=== PATIENT | female | born 1995 | race American Indian/Alaskan Native ===

== ENCOUNTER 2017-12-07 12:37 | Emergency (ER) | payer MEDICAID ==
[2017-12-07 12:52] VITALS: BP 124/73
--- NOTE | 2017-12-07 17:50 | Emergency Department Report ---
ED Fall HPI - General Chief Complaint: Fall Stated Complaint: FELL DOWN AND Time Seen by Provider: 12/07/17 17:33 Source: patient Mode of arrival: Ambulatory - History of Present Illness Initial Comments: Patient is a 22-year-old black female who fell on stairs and slipped down 2 stairs while holding one of her children. She did not hit her head she's got some pain at the right buttock. Patient is approximately 3 months and was worried that she has injured the baby. Patient states she is not felt the baby move today. Patient is here for examination to ensure that everything was okay as far as her . Severity scale (0 -10): 5 Quality: burning Context: tripped/slipped - Related Data Previous Rx's Medication Instructions Recorded Last Taken Type Ferrous Sulfate [Feosol 325 MG tab] 325 mg PO BID #60 tablet 03/02/15 08/23/15 Rx Ibuprofen [Motrin 600 MG tab] 800 mg PO Q6H PRN #30 tablet 03/02/15 08/23/15 10: 00 Rx Lidocaine/Prilocaine [Emla Cream] 30 gm TP PRN PRN #1 cream..g. 03/04/15 Rx Ferrous Sulfate [Feosol 325 MG tab] 325 mg PO BID #60 tablet 03/24/16 Unknown Rx Ibuprofen [Motrin 800 MG tab] 800 mg PO Q6H PRN #30 tablet 03/24/16 Unknown Rx oxyCODONE /ACETAMINOPHEN [Percocet 1 - 2 tab PO Q4H PRN #30 tablet 03/24/16 Unknown Rx 5/325 mg] Allergies Allergy/AdvReac Type Severity Reaction Status Date / Time No Known Allergies Allergy Verified 11/28/14 12:16 ED Review of Systems ROS: Stated complaint: FELL DOWN AND Other details as noted in HPI Comment: All other systems reviewed and negative ED Past Medical Hx - Past Medical History Previous Medical History?: Yes Hx Hypertension: No Hx Congestive Heart Failure: No Hx Diabetes: No Hx Deep Vein Thrombosis: No Hx Renal Disease: No Hx Sickle Cell Disease: No Hx Seizures: No Hx Asthma: Yes (last attack as child) Hx COPD: No Hx HIV: No - Surgical History Past Surgical History?: Yes Additional Surgical History: x 1 - Social History Smoking Status: Current Every Day Smoker Substance Use Type: None - Medications Home Medications: Home Medications Medication Instructions Recorded Confirmed Last Taken Type Ferrous Sulfate [Feosol 325 MG tab] 325 mg PO BID #60 tablet 03/02/15 03/24/16 08/23/15 Rx Ibuprofen [Motrin 600 MG tab] 800 mg PO Q6H PRN #30 tablet 03/02/15 03/24/1609/07 10:00 Rx Lidocaine/Prilocaine [Emla Cream] 30 gm TP PRN PRN #1 cream..g. 03/04/1508/23/15 Rx Ferrous Sulfate [Feosol 325 MG tab] 325 mg PO BID #60 tablet 03/24/16 Unknown Rx Ibuprofen [Motrin 800 MG tab] 800 mg PO Q6H PRN #30 tablet 03/24/16 Unknown Rx oxyCODONE /ACETAMINOPHEN [Percocet 1 - 2 tab PO Q4H PRN #30 tablet 03/24/16 Unknown Rx 5/325 mg] ED Physical Exam - General Limitations: No Limitations General appearance: alert, in no apparent distress - Head Head exam: Present: atraumatic, normocephalic - Eye Eye exam: Present: normal appearance - ENT ENT exam: Present: mucous membranes moist - Neck Neck exam: Present: normal inspection - Respiratory Respiratory exam: Present: normal lung sounds bilaterally. Absent: respiratory distress, wheezes, rales, rhonchi, stridor - Cardiovascular Cardiovascular Exam: Present: regular rate, normal rhythm. Absent: systolic murmur, diastolic murmur, rubs, gallop - GI/Abdominal GI/Abdominal exam: Present: soft, normal bowel sounds - Extremities Exam Extremities exam: Present: normal inspection, other (patient has some tenderness to the right buttock there is no midline back tenderness present.) - Back Exam Back exam: Present: normal inspection - Neurological Exam Neurological exam: Present: alert, oriented X3 - Psychiatric Psychiatric exam: Present: normal affect, normal mood - Skin Skin exam: Present: warm, dry, intact, normal color. Absent: rash ED Course Vital Signs 12/07/17 12:46 Temperature 98.4 F Pulse Rate 99 H Respiratory 18 Rate Blood Pressure 124/73 O2 Sat by Pulse 100 Oximetry ED Medical Decision Making - Radiology Data Viable IUP with no acute process Critical care attestation.: If time is entered above; I have spent that time in minutes in the direct care of this critically ill patient, excluding procedure time. ED Disposition Clinical Impression: Contusion, buttock Qualifiers: Encounter type: initial encounter Qualified Code(s): S30.0XXA - Contusion of lower back and pelvis, initial encounter Disposition: TO HOME OR SELFCARE Is pt being admited?: No Does the pt Need Aspirin: No Condition: Stable Instructions: Musculoskeletal Pain (ED) Referrals: MELODY MCKEON MD [Primary Care Provider] - 3-5 Days
--- NOTE | 2017-12-07 17:53 | Ultrasound Report ---
FINAL REPORT EXAM: US OB > = 14 WEEKS FETUS HISTORY: decreased movement after fall TECHNIQUE: Obstetrical ultrasound transabdominal PRIORS: None. FINDINGS: Single live intrauterine gestation present. cardiac activity present heart rate 160 beats per. Placenta is anterior and does not appear low lying. No evidence for placental abruption biometric measurements were obtained Biparietal diameter 14 weeks 5 days Head circumference 14 weeks 5 days Abdominal circumference 14 weeks 5 days Femur length 14 weeks 4 days Based on today's exam estimated gestational age 14 weeks 5 days with estimated date of delivery June 02, 2018 IMPRESSION: Single live intrauterine gestation estimated at 14 weeks 5 days
== END 2017-12-07 18:11 | disposition home or self-care (01) ==
LOC: ED 12:37
DX: O9A.211 Injury, poisoning and certain other consequences of external causes complicating pregnancy, first trimester (principal); S30.0XXA Contusion of lower back and pelvis, initial encounter; O99.511 Diseases of the respiratory system complicating pregnancy, first trimester; J45.909 Unspecified asthma, uncomplicated; O99.331 Smoking (tobacco) complicating pregnancy, first trimester; Z3A.12 12 weeks gestation of pregnancy; W10.8XXA Fall (on) (from) other stairs and steps, initial encounter; Y93.89 Activity, other specified; Y92.89 Other specified places as the place of occurrence of the external cause; Y99.8 Other external cause status
CPT/HCPCS: 36415; 76805; 84702; 99284

== ENCOUNTER 2017-12-26 10:18 | Emergency (ER) | payer MEDICAID ==
[2017-12-26] MEDS ORDERED: NACL 0.9% 1000 ML 1,000 ML IV ONE ×2 (11:38→12:24)
[2017-12-26] MEDS ORDERED: REGLAN IV ONE (11:39)
[2017-12-26] MEDS ORDERED: MORPHINE IV ONE ×2 (11:39→13:22)
[2017-12-26 12:00] LABS: Basophils # (Auto) 0.1 K/mm3 (0.0-0.1); Basophils % (Auto) 0.4 % (0.0-1.8); Eosinophils # (Auto) 0.2 K/mm3 (0.0-0.4); Eosinophils % (Auto) 1.1 % (0.0-4.3); Hemoglobin 12.6 gm/dl (10.1-14.3); Lymphocytes # (Auto) 2.8 K/mm3 (1.2-5.4); Lymphocytes % (Auto) 15.4 % (13.4-35.0); Mean Corpuscular HGB Conc 34 % (30-34); Mean Corpuscular Hemoglobin 27 pg (28-32); Mean Corpuscular Volume 78 fl (79-97); Monocytes % (Auto) 5.5 % (0.0-7.3); Platelet Count 279 K/mm3 (140-440); Red Blood Count 4.75 M/mm3 (3.65-5.03); Red Cell Distribution Width 15.2 % (13.2-15.2)
[2017-12-26 12:10] LABS: INR 0.94 (0.87-1.13)
[2017-12-26 12:11] LABS: Partial Thromboplastin Time 27.7 Sec. (24.2-36.6)
[2017-12-26 12:18] LABS: Alanine Aminotransferase 6 units/L (7-56); Albumin 3.8 g/dL (3.9-5); BUN/Creatinine Ratio 14; Blood Urea Nitrogen 7 mg/dL (7-17); Calcium 8.9 mg/dL (8.4-10.2); Hemolysis Index 1
--- NOTE | 2017-12-26 12:30 | Emergency Department Report ---
ED Abdominal Pain HPI - General Chief Complaint: Abdominal Pain Stated Complaint: ABDOMINAL PAIN/WATER BROKE Time Seen by Provider: 12/26/17 11:35 Source: patient Mode of arrival: Wheelchair Limitations: No Limitations - History of Present Illness MD Complaint: abdominal pain (Lower abdominal cramps.) -: Sudden, This morning Location: suprapubic Radiation: back Severity: severe Severity scale (0 -10): 10 Quality: cramping, sharp Consistency: constant Improves With: nothing Worsens With: nothing Context: other (patient said that she fell down the steps a week ago.) Associated Symptoms: denies other symptoms - Related Data Previous Rx's Medication Instructions Recorded Last Taken Type Ferrous Sulfate [Feosol 325 MG tab] 325 mg PO BID #60 tablet 03/02/15 08/23/15 Rx Ibuprofen [Motrin 600 MG tab] 800 mg PO Q6H PRN #30 tablet 03/02/15 08/23/15 10: 00 Rx Lidocaine/Prilocaine [Emla Cream] 30 gm TP PRN PRN #1 cream..g. 03/04/15 Rx Ferrous Sulfate [Feosol 325 MG tab] 325 mg PO BID #60 tablet 03/24/16 Unknown Rx Ibuprofen [Motrin 800 MG tab] 800 mg PO Q6H PRN #30 tablet 03/24/16 Unknown Rx oxyCODONE /ACETAMINOPHEN [Percocet 1 - 2 tab PO Q4H PRN #30 tablet 03/24/16 Unknown Rx 5/325 mg] Cephalexin [Keflex] 500 mg PO Q8HR 7 Days #21 cap 12/26/17 Unknown Rx HYDROcodone/ACETAMINOPHEN [[place] 1 each PO BID 3 Days #6 tablet 12/26/17 Unknown Rx 5-325 Tablet] Ibuprofen [Motrin] 800 mg PO Q8HR PRN 7 Days #20 12/26/17 Unknown Rx tablet Allergies Allergy/AdvReac Type Severity Reaction Status Date / Time No Known Allergies Allergy Verified 12/26/17 10:22 ED Review of Systems ROS: Stated complaint: ABDOMINAL PAIN/WATER BROKE Other details as noted in HPI Comment: All other systems reviewed and negative Constitutional: denies: chills, fever Eyes: denies: vision change ENT: denies: ear pain Respiratory: no symptoms reported. denies: shortness of breath Cardiovascular: denies: chest pain, palpitations Endocrine: no symptoms reported Gastrointestinal: abdominal pain. denies: nausea, vomiting Musculoskeletal: back pain (lower back) Skin: denies: change in color Neurological: denies: headache, weakness, numbness Psychiatric: denies: depression, auditory hallucinations Hematological/Lymphatic: denies: easy bleeding, easy bruising ED Past Medical Hx - Past Medical History Hx Hypertension: No Hx Congestive Heart Failure: No Hx Diabetes: No Hx Deep Vein Thrombosis: No Hx Renal Disease: No Hx Sickle Cell Disease: No Hx Seizures: No Hx Asthma: Yes (last attack as child) Hx COPD: No Hx HIV: No - Surgical History Additional Surgical History: x 1 - Social History Smoking Status: Current Every Day Smoker Substance Use Type: Marijuana - Medications Home Medications: Home Medications Medication Instructions Recorded Confirmed Last Taken Type Ferrous Sulfate [Feosol 325 MG tab] 325 mg PO BID #60 tablet 03/02/15 03/24/16 08/23/15 Rx Ibuprofen [Motrin 600 MG tab] 800 mg PO Q6H PRN #30 tablet 03/02/15 03/24/1609/07 10:00 Rx Lidocaine/Prilocaine [Emla Cream] 30 gm TP PRN PRN #1 cream..g. 03/04/1508/23/15 Rx Ferrous Sulfate [Feosol 325 MG tab] 325 mg PO BID #60 tablet 03/24/16 Unknown Rx Ibuprofen [Motrin 800 MG tab] 800 mg PO Q6H PRN #30 tablet 03/24/16 Unknown Rx oxyCODONE /ACETAMINOPHEN [Percocet 1 - 2 tab PO Q4H PRN #30 tablet 03/24/16 Unknown Rx 5/325 mg] Cephalexin [Keflex] 500 mg PO Q8HR 7 Days #21 cap 12/26/17 Unknown Rx HYDROcodone/ACETAMINOPHEN [[place] 1 each PO BID 3 Days #6 tablet 12/26/17 Unknown Rx 5-325 Tablet] Ibuprofen [Motrin] 800 mg PO Q8HR PRN 7 Days #20 12/26/17 Unknown Rx tablet ED Physical Exam - General Limitations: No Limitations General appearance: alert, in distress - Head Head exam: Present: atraumatic, normocephalic, normal inspection - Eye Eye exam: Present: normal appearance, PERRL, EOMI Pupils: Present: normal accommodation - ENT ENT exam: Present: normal exam, mucous membranes moist - Neck Neck exam: Present: normal inspection, full ROM - Respiratory Respiratory exam: Present: normal lung sounds bilaterally. Absent: respiratory distress, wheezes - Cardiovascular Cardiovascular Exam: Present: regular rate, normal rhythm - GI/Abdominal GI/Abdominal exam: Present: soft, tenderness, guarding, other (suprapubic tenderness to palpation.) - External exam: Present: normal external exam, bleeding, other (there is a dentist a few tooth him out of the introitus. This reduces bed without any movements. Fetus is signed and on a tread of umbilical cord.). Absent: lacerations Bi-manual exam: Present: other ([place] was Ms. Harriet RN.) - Extremities Exam Extremities exam: Present: normal inspection, full ROM - Back Exam Back exam: Present: normal inspection, full ROM - Neurological Exam Neurological exam: Present: alert, oriented X3, CN II-XII intact - Psychiatric Psychiatric exam: Present: agitated, anxious - Skin Skin exam: Present: warm, dry, intact, normal color ED Course Vital Signs 12/26/17 12/26/17 12/26/17 10:23 10:52 11:27 Temperature 98.6 F Pulse Rate 91 H 82 Respiratory 18 12 20 Rate Blood Pressure 117/68 Blood Pressure 125/76 [Right] O2 Sat by Pulse 97 100 100 Oximetry - Reevaluation(s) Reevaluation #1: 12/26/17 12:31 I consulted the SOCIOLOGY PROFESSOR doctor studio operations manager Dr. Karen Kirk. She recommended giving the patient 400 mg of Cytotec immediately. She recommended evaluate the patient in the emergency room. 12/26/17 12:31 Reevaluation #2: 12/26/17 14:42 Dr Hattie Kirk the computer network support specialist studio operations manager came to the ED, evaluated the patient and delivered the placenta. She recommend discharging her with Keflex 500mg PO and Methergine 0.25mg PO every 4 hours x 4 doses. She wants patient to follow up in her outpatient clinic next week. ED Medical Decision Making - Lab Data Result diagrams: 12/26/17 13:28 12/26/17 11:44 - Medical Decision Making Incomplete spontaneous . Critical care attestation.: If time is entered above; I have spent that time in minutes in the direct care of this critically ill patient, excluding procedure time. ED Disposition Clinical Impression: Spontaneous Disposition: [id number] TO HOME OR SELFCARE Is pt being admited?: No Does the pt Need Aspirin: No Condition: Stable Instructions: Abdominal Pain (ED), Spontaneous Miscarriage (ED) Additional Instructions: Patient along with Dr. Hattie Kirk next week in her outpatient clinic. Return to the ED if your condition worsens. Prescriptions: Cephalexin [Keflex] 500 mg PO Q8HR 7 Days #21 cap HYDROcodone/ACETAMINOPHEN [[place] 5-325 Tablet] 1 each PO BID 3 Days #6 tablet Ibuprofen [Motrin] 800 mg PO Q8HR PRN 7 Days #20 tablet PRN Reason: Pain Referrals: PRIMARY CARE, [Primary Care Provider] - 3-5 Days HATTIE KIRK MD [Staff Physician] - 3-5 Days
--- NOTE | 2017-12-26 12:42 | Ultrasound Report ---
ULTRASOUND OB LIMITED History: Lower abdominal cramps, recent spontaneous Technique: Transabdominal ultrasound with Doppler interrogation. Findings: The uterus is anteverted. The uterus is enlarged measuring 15 x 10 x 10 cm. No uterine mass. The endometrium is markedly thickened measuring up to 4 cm consistent with retained products of conception. The ovaries are not visualized. No pelvic fluid collection. Impression: Retained products of conception are suspected as outlined above.
[2017-12-26] MEDS ORDERED: CYTOTEC PO ONE (13:00)
[2017-12-26] MEDS ORDERED: METHERGINE PO ONE (13:15)
--- NOTE | 2017-12-26 13:26 | History and Physical Report ---
History of Present Illness Date of examination: 12/26/17 Date of admission: 12/26/17 Chief complaint: abdominal pain and bleeding History of present illness: This is a 22 yo with LMP Jun or Jul. Patient was seen 2 weeks after a fall noted to be 14 week. Patient noted to have abdominal pain on a scale of 10 and came in today at 11am. Patient was noted to have a heavy bleeding and passed the fetus. I was contacted to evaluate patient for bleeding while in the ER Past History Past Medical History: no pertinent history Past Surgical History: section (breech ) Family/Genetic History: none Social history: single, smoking, other (+ marijuana) - Obstetrical History : 3 Medications and Allergies Allergies Allergy/AdvReac Type Severity Reaction Status Date / Time No Known Allergies Allergy Verified 12/26/17 10:22 Home Medications Medication Instructions Recorded Confirmed Last Taken Type Ferrous Sulfate [Feosol 325 MG tab] 325 mg PO BID #60 tablet 03/02/15 03/24/16 08/23/15 Rx Ibuprofen [Motrin 600 MG tab] 800 mg PO Q6H PRN #30 tablet 03/02/15 03/24/1609/07 10:00 Rx Lidocaine/Prilocaine [Emla Cream] 30 gm TP PRN PRN #1 cream..g. 03/04/1508/23/15 Rx Ferrous Sulfate [Feosol 325 MG tab] 325 mg PO BID #60 tablet 03/24/16 Unknown Rx Ibuprofen [Motrin 800 MG tab] 800 mg PO Q6H PRN #30 tablet 03/24/16 Unknown Rx oxyCODONE /ACETAMINOPHEN [Percocet 1 - 2 tab PO Q4H PRN #30 tablet 03/24/16 Unknown Rx 5/325 mg] Active Meds: Active Medications Sodium Chloride (Nacl 0.9% 1000 Ml) 1,000 mls @ 999 mls/hr IV BOLUS ONE Stop: 12/26/17 13:24 Review of Systems All systems: negative Genitourinary: vaginal bleeding, contractions - Vital Signs Vital signs: Vital Signs Temp Pulse Resp BP Pulse Ox 98.6 F 91 H 18 117/68 97 12/26/17 10:23 12/26/17 10:23 12/26/17 10:23 12/26/17 10:23 12/26/17 10:23 Temp Pulse Resp BP Pulse Ox 98.6 F 82 20 125/76 100 12/26/17 10:23 12/26/17 11:27 12/26/17 11:27 12/26/17 11:27 12/26/17 11:27 - Physical Exam Breasts: Positive: normal Cardiovascular: Regular rate, Normal S1 Lungs: Positive: Clear to auscultation, Normal air movement Abdomen: Positive: normal appearance, soft, normal bowel sounds. Negative: distention, tenderness, guarding Genitourinary (Female): Positive: normal external genitalia, normal perenium Vagina: Positive: normal moisture Cervix: Positive: other (open with placenta at os) Uterus: Positive: normal size Anus/Rectum: Positive: normal perianal skin Extremities: Positive: normal Deep Tendon Reflex Grade: Normal +2 Results Result Diagrams: 12/26/17 11:44 12/26/17 11:44 Abnormal lab results 12/26/17 12/26/17 Range/Units 11:44 11:44 WBC 18.4 H (4.5-11.0) K/mm3 MCV 78 L (79-97) fl MCH 27 L (28-32) pg [place] # 1.0 H (0.0-0.8) K/mm3 Seg Neutrophils % 77.6 H (40.0-70.0) % Seg Neutrophils # 14.3 H (1.8-7.7) K/mm3 Creatinine 0.5 L (0.7-1.2) mg/dL ALT 6 L (7-56) units/L Albumin 3.8 L (3.9-5) g/dL All other labs normal. Assessment and Plan A/P Second trimester loss Retained placenta given 400 ug of cytotec po gently teased placenta intact d/w with ER attending to discharge when stable , follow up cbc, pain meds and methergine follow up in 1 week in my clinic repeat US to assess completion per L and D staff fluid ?greenish fluid possible meconium vs infected will recommend Keflex
[2017-12-26 13:41] LABS: Hematocrit 34.2 % (30.3-42.9); Hemoglobin 11.5 gm/dl (10.1-14.3); Mean Corpuscular HGB Conc 34 % (30-34); Mean Corpuscular Hemoglobin 26 pg (28-32); Mean Corpuscular Volume 78 fl (79-97); Platelet Count 248 K/mm3 (140-440); Red Blood Count 4.37 M/mm3 (3.65-5.03); Red Cell Distribution Width 15.7 % (13.2-15.2)
[2017-12-26] MEDS ORDERED: KEFLEX PO ONE (14:21)
--- NOTE | 2017-12-26 14:34 | Ultrasound Report ---
FINAL REPORT PROCEDURE: US OB < 14 WKS TECHNIQUE: Real-time transabdominal sonography of the uterus, placenta, amniotic fluid, adnexa, and fetus was performed with image documentation. Measurements were obtained to determine age/size. M-mode Doppler was used to document heartbeat. CPT 99324 HISTORY: Possible spontaneous . Evaluate for retained products of conception. COMPARISON: Prior ultrasound 12/07/2017 FINDINGS: The uterus appears to be mildly enlarged measuring 14.1 x 8.6 x 0.4 centimeter. No uterine masses are identified. The endometrial stripe measures 10.4 millimeters in thickness. No evidence of intrauterine . No fluid or retained products of conception are identified in the endometrial canal. No free fluid is seen in the cul-de-sac. Right and left ovaries show no abnormalities. No abnormal cystic or solid masses are seen in the adnexa. Right ovary measures 2.8 x 1.9 x 2.2 centimeter. The left ovary measures 2.8 x 1.9 x 2.3 centimeters. IMPRESSION: No evidence of intrauterine or retained products of conception. The uterus is mildly enlarged consistent with recent . Ovaries are unremarkable.
[2017-12-26 15:37] VITALS: BP 139/64
== END 2017-12-26 15:32 | disposition home or self-care (01) ==
LOC: ED 10:18
DX: O03.9 Complete or unspecified spontaneous abortion without complication (principal); O99.512 Diseases of the respiratory system complicating pregnancy, second trimester; J45.909 Unspecified asthma, uncomplicated; O99.322 Drug use complicating pregnancy, second trimester; F12.10 Cannabis abuse, uncomplicated; O99.332 Smoking (tobacco) complicating pregnancy, second trimester; F17.200 Nicotine dependence, unspecified, uncomplicated; Z3A.16 16 weeks gestation of pregnancy
CPT/HCPCS: 36415; 76801; 76815; 80053; 85025; 85027; 85610; 85730; 86900; 86901; 88305; 96361; 96374; 96375; 96376; 99284; J2270; J2765; J7030; 76805